=== PATIENT | male | born 1945 | race Caucasian/White ===

== ENCOUNTER → 2021-07-13 | Outpatient (CLI) | payer MEDICARE, BC ==
[~2021-07-13] VITALS: Ht 182.9 cm; Wt 104.3 kg
== END ==
LOC: EROP 10:50
DX: U07.1 COVID-19 (principal); Z23 Encounter for immunization; I12.9 Hypertensive chronic kidney disease with stage 1 through stage 4 chronic kidney disease, or unspecified chronic kidney disease; N18.9 Chronic kidney disease, unspecified; D84.9 Immunodeficiency, unspecified
CPT/HCPCS: M0247; Q0247

== ENCOUNTER → 2021-11-04 | Outpatient (CLI) | payer MEDICARE, BC | LOC: KOH-I 09:20 | DX: J01.01 Acute recurrent maxillary sinusitis (principal); J33.8 Other polyp of sinus | CPT/HCPCS: 70486 ==